=== PATIENT | female | born 1955 | race Caucasian/White ===

== ENCOUNTER → 2016-05-05 | Outpatient (CLI) | payer OTHER ==
[~2016-05-05] MED LIST: ADVAIR 250-501 EACH INH; ALLERGY10 M1 PO; ASPIR 8181 MG PO; FENOFIBRATE145 MG PO; FLEXERIL 10 MG10 MG PO; FLONASE ALLER15.8 ML; HYDROCHLOROTHIA25 MG PO; LASIX20 MG PO; LEVOTHYROXINE25 MCG PO; LIPITOR40 MG PO; NORVASC 5 MG TAB5 MG PO; OMEPRAZOLE20 MG PO; PREMARIN0.625 MG PO; PROVENTIL HFA 61 INH INH; TOPROL XL 25 MG25 MG PO; VITAMIN D1000 UNI1 PO
[2016-05-05 18:26] LABS: RED BLOOD COUNT 4.49 M/UL (4.00-5.10); WHITE BLOOD COUNT 7.9 K/UL (4.5-11.0)
[2016-05-05 18:45] LABS: BUN/CREATININE RATIO 21 (0-10)
== END ==
LOC: RAD 17:48
PROVIDERS: Nurse Practitioner Family
DX: M54.5 Low back pain (principal); R04.0 Epistaxis; M40.46 Postural lordosis, lumbar region; M12.9 Arthropathy, unspecified
CPT/HCPCS: 36415; 72100; 80053; 85025

== ENCOUNTER → 2016-05-06 | Outpatient (CLI) | payer OTHER | LOC: LBRF 11:11 | DX: R39.11 Hesitancy of micturition (principal) | CPT/HCPCS: 87086 ==

== ENCOUNTER → 2016-05-26 | Outpatient (CLI) | payer OTHER | LOC: US 07:48 | DX: N28.1 Cyst of kidney, acquired (principal); K76.0 Fatty (change of) liver, not elsewhere classified | CPT/HCPCS: 76700 ==

== ENCOUNTER → 2016-06-29 | Outpatient (CLI) | payer OTHER | LOC: MAMO 06-22 10:20 | DX: Z12.31 Encounter for screening mammogram for malignant neoplasm of breast (principal) | CPT/HCPCS: G0202 ==

== ENCOUNTER 2016-10-25 16:15 | Emergency (ER) | payer OTHER | END 2016-10-25 21:10 | disposition home or self-care (01) | LOC: ER1 16:15 | DX: M25.562 Pain in left knee (principal); I10 Essential (primary) hypertension | CPT/HCPCS: 73564; 93971; 99283 ==

== ENCOUNTER → 2020-02-25 | Outpatient (CLI) | payer MEDICARE, OTHER ==
[~2020-02-25] MED LIST changes: -ALLERGY10 M1 PO; +ARTIFICIAL TEAR15 M6 OU; -ASPIR 8181 MG PO; +ASPIRIN81 MG PO; +CEPHALEXIN500 M1 PO; +CLARITIN10 MG PO; +DAILY MULTIPLE1 EAC1 PO; +HYDROCODON-ACE1 EAC4 PO; +LASIX 40 MG TAB40 MG PO; +LIPITOR20 MG PO; +LOPRESSOR50 MG PO; +MECLIZINE HCL25 MG PO; +MOBIC15 MG PO; +NITROGLYCERIN0.4 MG SL; -NORVASC 5 MG TAB5 MG PO; +NORVASC5 MG PO; +PREDNISONE20 MG PO; +VITAMIN D250 MCG PO; +VITAMIN D325 MCG PO
== END ==
LOC: ECHO 12:28
DX: I50.32 Chronic diastolic (congestive) heart failure (principal)
CPT/HCPCS: ECHO; 93306

== ENCOUNTER → 2020-04-13 | Outpatient (CLI) | payer MEDICARE, OTHER | LOC: KOH-I 08:00 | DX: J32.9 Chronic sinusitis, unspecified (principal); R51.9 Headache, unspecified; G50.1 Atypical facial pain | CPT/HCPCS: 70486 ==

== ENCOUNTER → 2020-05-20 | Outpatient (CLI) | payer MEDICARE, OTHER ==
[2020-05-20 13:51] LABS: BUN/CREATININE RATIO 27 (0-10)
== END ==
LOC: OPSV2 12:00
PROVIDERS: Anesthesiology
DX: Z01.818 Encounter for other preprocedural examination (principal)
CPT/HCPCS: 36415; 80048; 93005

== ENCOUNTER → 2020-05-25 | Day surgery (SDC) | payer MEDICARE, OTHER | END | disposition home or self-care (01) | LOC: OR 06:24 | DX: J32.9 Chronic sinusitis, unspecified (principal); J34.3 Hypertrophy of nasal turbinates; J34.89 Other specified disorders of nose and nasal sinuses; I11.0 Hypertensive heart disease with heart failure; I50.9 Heart failure, unspecified; G47.30 Sleep apnea, unspecified; E78.00 Pure hypercholesterolemia, unspecified; K21.9 Gastro-esophageal reflux disease without esophagitis; J42 Unspecified chronic bronchitis; E03.9 Hypothyroidism, unspecified; M19.90 Unspecified osteoarthritis, unspecified site; E66.01 Morbid (severe) obesity due to excess calories; Z91.040 Latex allergy status; Z91.013 Allergy to seafood; Z79.82 Long term (current) use of aspirin; Z79.899 Other long term (current) drug therapy | CPT/HCPCS: 87070; 87077; 87186; 87205; 94664; C1726; J0171; J0690; J1100; J2001; J2250; J2405; J2704; J2710; J3010; J7030; J7120 ==

== ENCOUNTER → 2020-09-23 | Outpatient (CLI) | payer MEDICARE, OTHER ==
[2020-09-23 11:37] LABS: BUN/CREATININE RATIO 18 (0-10)
== END ==
LOC: LAB 09:24
PROVIDERS: Physician Assistant Surgical
DX: I10 Essential (primary) hypertension (principal)
CPT/HCPCS: 36415; 80053; 80061

== ENCOUNTER → 2020-10-16 | Outpatient (CLI) | payer MEDICARE, OTHER ==
[2020-10-16 10:47] LABS: BUN/CREATININE RATIO 24 (0-10)
== END ==
LOC: LAB 09:40
PROVIDERS: Physician Assistant Surgical
DX: E87.6 Hypokalemia (principal)
CPT/HCPCS: 36415; 80048

== ENCOUNTER → 2020-11-16 | Outpatient (CLI) | payer MEDICARE, OTHER ==
[2020-11-16 10:34] LABS: HEMOGLOBIN 13.9 gm/dl (12.3-15.3); RED BLOOD COUNT 4.78 M/UL (4.00-5.10); WHITE BLOOD COUNT 6.7 K/UL (4.5-11.0)
[2020-11-16 11:02] LABS: BUN/CREATININE RATIO 27 (0-10)
== END ==
LOC: LAB 08:41
PROVIDERS: Nurse Practitioner Family
DX: I10 Essential (primary) hypertension (principal); E78.5 Hyperlipidemia, unspecified; E03.9 Hypothyroidism, unspecified; E55.9 Vitamin D deficiency, unspecified
CPT/HCPCS: 36415; 80053; 80061; 81001; 84439; 84443; 85025

== ENCOUNTER → 2020-11-20 | Outpatient (CLI) | payer MEDICARE, OTHER | LOC: LAB 11:55 | DX: R35.0 Frequency of micturition (principal) | CPT/HCPCS: 87086 ==

== ENCOUNTER → 2020-12-22 | Outpatient (CLI) | payer MEDICARE, OTHER | LOC: MAMO 13:22 | DX: Z12.31 Encounter for screening mammogram for malignant neoplasm of breast (principal) | CPT/HCPCS: 77063; 77067 ==

== ENCOUNTER → 2021-06-28 | Outpatient (CLI) | payer MEDICARE, OTHER | LOC: EXRD 10:58 | DX: J20.9 Acute bronchitis, unspecified (principal) | CPT/HCPCS: 71046 ==

== ENCOUNTER → 2021-07-20 | Outpatient (CLI) | payer MEDICARE, OTHER | LOC: HEART 5 08:38 | DX: R05.9 Cough, unspecified (principal); R06.02 Shortness of breath | CPT/HCPCS: 94010 ==

== ENCOUNTER → 2021-09-07 | Day surgery (SDC) | payer MEDICARE, OTHER ==
[~2021-09-07] MED LIST changes: +CALCIUM OTC; +KLOR-CON 1010 MEQ PO
== END | disposition home or self-care (01) ==
LOC: OR 06:08
DX: Z12.11 Encounter for screening for malignant neoplasm of colon (principal); K62.89 Other specified diseases of anus and rectum; K57.30 Diverticulosis of large intestine without perforation or abscess without bleeding; K64.1 Second degree hemorrhoids; K64.4 Residual hemorrhoidal skin tags; E66.01 Morbid (severe) obesity due to excess calories; I10 Essential (primary) hypertension; K21.9 Gastro-esophageal reflux disease without esophagitis; E78.5 Hyperlipidemia, unspecified; M19.90 Unspecified osteoarthritis, unspecified site; Z86.010 Personal history of colon polyps; Z79.82 Long term (current) use of aspirin; Z68.41 Body mass index [BMI] 40.0-44.9, adult
CPT/HCPCS: J2704; J7040

== ENCOUNTER → 2021-10-20 | Outpatient (CLI) | payer MEDICARE, OTHER | LOC: LAB 16:47 | DX: R30.0 Dysuria (principal) | CPT/HCPCS: 81001; 87086 ==